=== PATIENT | female | born 1960 | race Caucasian/White ===

== ENCOUNTER 2017-02-11 20:03 | Emergency (ER) | payer BC ==
[~2017-02-11] VITALS: Ht 154.9 cm; Wt 101.6 kg
[2017-02-11 20:03] VITALS: Ht 154.9 cm; Wt 101.6 kg
[~2017-02-11 20:03] MED LIST: ACET325T51 PO; CHOL200014 PO; ENOX120D SQ; LEVO100T83 PO; LISI10TA7 PO; MAGN100T2 PO; MUPI15CR12 TOP; OMEP20CA81 PO; OXYC5TAB84 PO; SENN8.6C5 PO; VENL-68 PO; WARF5TAB6 PO; [UNRECOGNIZED DRUG - CODE] PO
--- OUTSIDE RECORDS SUMMARY | 2017-02-11 20:07 | XMS REPORT | Continuity of Care Document ---
Author Author [facility] Organization [facility] Address Unknown Phone Unavailable Care Team Providers Care Bellhop Captain Name Role Phone Peter Escalante Primary Care Physician [phone] Source Comments Some departments are not documenting in the electronic medical record. If you do not see the information that you expected, contact Release of Information in the Health Information Management department at [phone] for further assistance in locating additional records.[facility] Active Allergies and Adverse Reactions Allergen Noted Date Severity Reactions Comments Hydrocodone 01/05/2015 Low DIZZINESS Lortab 01/24/2015 Low DIZZINESS Sulfa (Sulfonamide 10/13/2004 Low DIZZINESS Antibiotics) Current Medications Prescription Sig. Disp. Refills Start End Date Status Date omeprazole DR(+) Take 20 mg by mouth twice Active (PRILOSEC) 20 mg capsule daily. levothyroxine (SYNTHROID) Take 100 mcg by mouth Active 100 mcg tablet daily. Indications: Take Friday through Friday only. Not Friday venlafaxine XR (EFFEXOR Take 75 mg by mouth Active XR) 75 mg capsule daily. cholecalciferol(+) Take 2,000 Units by mouth Active (VITAMIN D3) 2,000 unit daily. tablet lisinopril (PRINIVIL; Take 10 mg by mouth Active ZESTRIL) 10 mg tablet daily. mupirocin (BACTROBAN) 2 % Apply 0.5 g to affected Active nasal ointment area three times daily. acetaminophen (TYLENOL) Take 2 Tabs by mouth 30 Tab 1 01/27/20 Active 325 mg tablet every 4 hours as needed 15 for Pain. levETIRAcetam (KEPPRA) Take 1 Tab by mouth twice 60 Tab 1 01/27/20 Active 750 mg tablet daily. 15 WARFARIN SODIUM (WARFARIN Take by mouth. 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 Encounter for staple removal 02/09/2015 Hypertension 01/24/2015 Seizures (HCC) 01/24/2015 Social History Tobacco Use Types Packs/Day Years Used Date Never Smoker Alcohol Use Drinks/Week oz/Week Comments Yes less than weekly Last Filed Vital Signs Vital Sign Reading Time Taken Blood Pressure 105/76 09/11/2015 9:11 AM DETECTIVE CAPTAIN Pulse 76 09/11/2015 9:11 AM DETECTIVE CAPTAIN Temperature 36.7 C (98.1 F) 01/26/2015 12:00 PM CDT Respiratory Rate - - Height 1.549 m (5' 1") 09/11/2015 9:11 AM DETECTIVE CAPTAIN Weight 111.131 kg (245 lb) 09/11/2015 9:11 AM DETECTIVE CAPTAIN Body Mass Index 46.32 09/11/2015 9:11 AM DETECTIVE CAPTAIN Oxygen Saturation 98% 01/26/2015 12:00 PM CDT Plan of Care Health Maintenance Due Date Last Done Comments Hepatitis C Screening 1960 Physical (Comprehensive) 1969 Exam Pertussis Vaccine 1973 Tetanus Vaccine 1979 Cervical Cancer Screening 1983 Breast Cancer Screening 2002 Colorectal Cancer 02/21/2012 Screening Influenza Vaccine 06/13/2017 Results from Last 3 Months Not on file
[2017-02-11] MEDS ORDERED: CLON1PAT15 TOP (20:16)
[2017-02-11] MEDS ORDERED: ESLI800T PO (20:16)
--- NOTE | 2017-02-11 20:20 | NUR ---
PT PLACEMENT VERNELL OLEARY RN AT PT PLACEMENT AT [facility]. PT WILL GO TO [address].
--- OUTSIDE RECORDS SUMMARY | 2017-02-11 20:28 | XMS REPORT | Continuity of Care Document ---
Author Author [facility] Organization [facility] Address Unknown Phone Unavailable Care Team Providers Care Sheep Or Calf Grader Name Role Phone Peter Escalante Primary Care Physician [phone] Source Comments Some departments are not documenting in the electronic medical record. If you do not see the information that you expected, contact Release of Information in the Health Information Management department at [phone] for further assistance in locating additional records.[facility] Active Allergies and Adverse Reactions Allergen Noted [...] Taken Blood Pressure 105/76 09/11/2015 9:11 AM GLOBAL MARKETING OPERATIONS MANAGER Pulse 76 09/11/2015 9:11 AM GLOBAL MARKETING OPERATIONS MANAGER Temperature 36.7 C (98.1 F) 01/26/2015 12:00 PM CDT Respiratory Rate - - Height 1.549 m (5' 1") 09/11/2015 9:11 AM GLOBAL MARKETING OPERATIONS MANAGER Weight 111.131 kg (245 lb) 09/11/2015 9:11 AM GLOBAL MARKETING OPERATIONS MANAGER Body Mass Index 46.32 09/11/2015 9:11 AM GLOBAL MARKETING OPERATIONS MANAGER Oxygen Saturation 98% 01/26/2015 12:00 PM CDT Plan of Care Health Maintenance Due Date Last Done Comments Hepatitis C Screening 1960 Physical (Comprehensive) 1969 Exam Pertussis Vaccine 1973 Tetanus Vaccine 1979 Cervical Cancer Screening 1983 Breast Cancer Screening 2002 Colorectal Cancer 02/21/2012 Screening Influenza Vaccine 06/13/2017 Results from Last 3 Months Not on file
[2017-02-11] MEDS ORDERED: ONDANSETRON 4mg/2ml INJECTION IV ONE ×2 (20:30→22:30)
--- NOTE | 2017-02-11 20:46 | NUR ---
CT Patient out to CT
--- NOTE | 2017-02-11 21:04 | NUR ---
CT Patient returns
--- NOTE | 2017-02-11 21:13 | ERPDOC ---
Departure Disposition Decision Date: February 11, 2017 Disposition Decision Time: 22:00 Disposition: 02 TO [facility] Impression Impression Impression: Primary Impression: Pyelonephritis Additional Impressions: Hyponatremia Acute kidney injury Dehydration Severity: Moderate Condition: Improved Seen By: Physician only Referrals: EMMANUELLE MCKOY MD (Family) Problems/Meds/Labs Reviewed?: Yes Medications reviewed and manag: Yes Follow up care ordered?: Yes Mental Status: Alert, Oriented HPI - General Medical General Chief Complaint: Female Urogenital Problems Stated Complaint: BACK PAIN,NAUSEA,SEVERE OROURKE Time Seen by Provider: 20:22 Source: patient, family Exam Limitations: no limitations HPI - General Medical Initial Comments 56-year-old female presents to the emergency department with a chief complaint of nausea and a typical headache. Patient noted onset of symptoms approximately 3-4 days ago while at home. Patient was seen in the emergency department one day ago and started on Cipro after she was diagnosed with a urinary tract infection. Patient describes the headache as dull and generalized. It is moderate in nature. No radiation. She notes that the Zofran did improve her nausea but she was not given a prescription only a dose at the ED yesterday. Patient denies any other complaints or associated symptoms. Symptoms have been persistent in nature since onset. Occurred At: home Onset: Gradual Allergies: Coded Allergies: hydrocodone (Verified Allergy, Unknown, 02/17/15) Sulfa (Sulfonamide Antibiotics) (Verified Adverse Reaction, Unknown, VERTIGO, 02/17/15) Past History Past Medical History Metabolic: cancer, hypertension, other ENMT: ear infections, sinusitis Respiratory: pneumonia Female: UTI Neurological: headaches, migraines, seizures Psychological: depression Surgical History General: other, tonsils Reproductive/: Joint: other Family History Family PMH: FOUND: diabetes Vaccines Hx Influenza Vaccination: Yes (06/26) Hx Pneumococcal Vaccination: Yes (02/24) Social History Smoking Status: Never smoker Substance Use Type: does not use Alcohol Intake: none Sexuality: male partner Review of Systems Constitutional Constitutional: DENIES: chills, fever Eyes General: DENIES: erythema, exudate Lids/Accessories: DENIES: erythema, swelling Vision: DENIES: acuity, blurring ENMT Ears: DENIES: drainage, pain Hearing: DENIES: hearing loss Balance: DENIES: ataxia, falling to one side Sinuses: DENIES: congestion, pain, rhinorrhea Nose: DENIES: nosebleeds, pain Mouth/Throat: DENIES: painful swallowing, sore throat Teeth: DENIES: pain Jaw: DENIES: pain Cardiovascular Cardiac: DENIES: chest pain, dyspnea on exertion Rhythm/Rate: DENIES: irregular beat, palpitations Vascular: DENIES: pedal edema, unilateral swelling Pulmonary Respiratory: DENIES: cough, dyspnea, pleuritic chest pain, sputum GI Upper Abdomen: nausea, DENIES: pain, vomiting Lower Abdomen: DENIES: diarrhea, pain General: dysuria, frequency Musculoskeletal General: DENIES: joint pain, tenderness Integumentary Skin: DENIES: itching, rash Neurological General: headache, DENIES: numbness, weakness Psychiatric Psychiatric: DENIES: emotional instability, suicidal ideation/attempt Endocrine Endocrine: DENIES: polydipsia, polyphagia Hematologic/Lymphatic Hematologic/Lymphatic: DENIES: frequent nosebleeds, lymphadenopathy Allergic/Immunological Allergic/Immunoligical: DENIES: allergic reactions, hives Physical Exam General General Nourishment: well nourished, well developed, appears stated age, no acute distress, adult General Body Habitus: well groomed Vitals and Pain First Documented Vital Signs Date Time Temp Pulse Resp B/P Pulse Ox O2 Delivery O2 Flow Rate FiO2 02/11/17 20:03 99.0 90 18 120/73 94 Room Air Weight: Kilograms: 101.600 Height (feet): 5 Height (inches): 1.00 Triage Pain Scale: RN VS reviewed by Provider: Yes Normal Exams: Head: Normocephalic w/o trauma Eyes: Pupils are PERRLA w/ EOMI, No scleral icterus, irritation, or foreign bodies noted ENMT: No facial trauma, nasal exudates, pharyngeal erythema, or exudates are noted Dental: No fractured, loose, or missing teeth noted Neck: Full range of motion, without adenopathy, JVD, bruits or thyromegaly Chest/Resp: Clear all hernandez, with good airflow, and symmetry bilaterally CV: Regular rate and rhythm, without murmur or gallop, Pulses 2+ all extremities, capillary refill, <2 seconds all ext., no pedal edema noted Abdomen: Bowel sounds positive, soft, non-tender, non-distended, no hepatosplenomegaly, masses or bruits noted Lymphatic: No lymphadenopathy, or lymphedema noted Musculoskeletal: No tenderness, or deformity noted, good range of motion, all extremities Integumentary: No rashes, hives, or bruising noted, hair and nails, without abnormality Neurologic: Patient is alert, and oriented, cranial nerves, motor/sensory/ cerebellar, exams w/o gross deficits, to observation Psychiatric: Patient exhibits, appropriate attention, emotion and affect Progress Results/Orders Orders Procedure Category Date Status Time Cbc W/Auto LAB 02/11/17 Complete Diff-Reflex Manual Cmp - Comprehensive LAB 02/11/17 Complete Metabolic Lipase LAB 02/11/17 Complete LAB 02/11/17 Complete Qualitative, Urine 20:27 Ct Head W/O Contrast CT 02/11/17 Taken 20:27 Ct Abd/Pelvis W/O CT 02/11/17 Taken Contrast 20:27 EKG EKG 02/11/17 Taken Ondansetron Inj PHA 02/11/17 Complete (Zofran) 20:30 Iv Lock (Ed Only) EDM 02/11/17 Transmitted 20:27 UA, LAB 02/11/17 Complete Dip&Micro(Complete) & 21:39 Lactate - Lactic Acid LAB 02/11/17 Complete Procalcitonin LAB 02/11/17 Complete 21:51 Blood Culture MATTY 02/11/17 In Process 21:51 Lactate - Lactic Acid LAB 02/12/17 Verified 02:21 Urine Culture MATTY 02/11/17 In Process 21:57 Ceftriaxone I.V. (Er PHA 02/11/17 In Process Use Only) (Rocephin 22:15 Normal Saline (Ns) PHA 02/11/17 Complete 22:15 Acetaminophen PHA 02/11/17 Complete (Tylenol Extra 22:30 Ondansetron Inj PHA 02/11/17 Complete (Zofran) 22:30 Lab Results Laboratory Tests Test 02/11/17 21:08 02/11/17 21:39 02/11/17 22:05 02/11/17 22:06 White Blood Count 9.6T/MM3 Red Blood Count 3.34M/MM3 Hemoglobin 10.2GM/DL Hematocrit 29.5% Mean Corpuscular Volume 88.3UM3 Mean Corpuscular Hemoglobin 30.5UUG Mean Corpuscular Hemoglobin Concent 34.6GM/DL RDW Standard Deviation 37.7FL Platelet Count 159T/MM3 Mean Platelet Volume 8.4UM3 Immature Granulocyte % (Auto) % Neutrophils (%) (Auto) % Lymphocytes (%) (Auto) % Monocytes (%) (Auto) % Eosinophils (%) (Auto) % Basophils (%) (Auto) % Absolute Immature Granulocyte (auto T/MM3 Absolute Neutrophils (auto) T/MM3 Absolute Lymphocytes (auto) T/MM3 Absolute Monocytes (auto) T/MM3 Absolute Eosinophils (auto) T/MM3 Absolute Basophils (auto) T/MM3 Neutrophils % (Manual) 76.0% Band Neutrophils % 17.0% Lymphocytes % (Manual) 7.0% Absolute Neutrophils (Manual) 7.3T/MM3 Band Neutrophils # 1.6T/MM3 Lymphocytes # (Manual) 0.7T/MM3 Red Cell Morphology Comment Normal Turbidity < 20 Sodium Level 122MEQ/L Potassium Level 4.1MEQ/L Chloride Level 88MEQ/L Carbon Dioxide Level 24MEQ/L Anion Gap 10MEQ/L Blood Urea Nitrogen 27.0MG/DL Creatinine 1.4MG/DL Glomerular Filtration Rate Calc 39 BUN/Creatinine Ratio 19RATIO Glucose Level 127MG/DL Calculated Osmolality 243MOSM/KG Calcium Level 8.6MG/DL Total Bilirubin 0.80MG/DL Icterus Index < 2 Aspartate Amino Transf (AST/SGOT) 18U/L Alanine Aminotransferase (ALT/SGPT) 43U/L Alkaline Phosphatase 86U/L Total Protein 5.6G/DL Albumin 3.0G/DL Globulin 2.6G/DL Albumin/Globulin Ratio 1.2RATIO Lipase < 10U/L Chemistry Specimen Hemolysis < 15 Urine Collection Type Cleancatch-midstream Urine Color Yellow Urine Turbidity Cloudy Urine pH 5.5 Urine Specific [place] 1.025 Urine Protein 2+ Urine Glucose (UA) Negative Urine Ketones Trace Urine Blood 1+ Urine Nitrite Negative Urine Bilirubin 1+ Urine Urobilinogen 1.0EU/DL Urine Leukocyte Esterase 2+ Urine RBC 0-1/HPF Urine WBC 50-200/HPF Urine WBC Clumps Few Urine Squamous Epithelial Cells 20-50 Urine Amorphous Urates Few Urine Bacteria 2+ Urine Coarse Granular Casts 3-5/LPF Urine Culture Indicated Cult reflexed &setup Urine Test Negative Procalcitonin 6.95NG/ML Plasma Lactate 0.6MMOL/L Medications Current ED Medications Ondansetron HCl 4 mg 4 mg O ONCE IV Last administered on 5/2/17at 21:14; Start 02/11/17 at 20:30; Stop 02/11/17 at 20:31; Status DC Ceftriaxone Sodium 1 g/Sodium Chloride 100 ml @ 100 mls/hr O ONCE IV Last administered on 02/11/17 22:32; Start 02/11/17 at 22:15; Stop 02/11/17 at 23:14 Sodium Chloride (NS) 500 ml @ 999 mls/hr Q31M ONCE IV Last administered on 02/11 22:31; Start 02/11/17 at 22:15; Stop 02/11/17 at 22:45; Status DC Acetaminophen (Tylenol Extra Strength) 1,000 mg O ONCE PO Last administered on 02/11/17 22:32; Start 02/11/17 at 22:30; Stop 02/11/17 at 22:31; Status DC Ondansetron HCl (Zofran) 4 mg O ONCE IV Last administered on 02/11/17 22:31; Start 02/11/17 at 22:30; Stop 02/11/17 at 22:31; Status DC Progress Progress Labs / imaging discussed in detail with the patient and family and questions are answered. Patient is given gentle IV hydration secondary to the hyponatremia. Patient is given analgesic pain medication with improvement of symptoms. Patient is given parental antiemetic medications with improvement of nausea. Blood cultures and lactic acid are obtained. Patient is started on Rocephin 1 g IV 1 in the emergency Department. Patient is discussed with the hospitalist Dr. Hua Candelaria who recommends transfer of the patient to a higher level of care at this time. His recommendation is based on the fact that due to the patient's complex history and her neurologist being via [facility] along with no availability of nephrology at [place], the best place for the patient to receive the best care would be at a higher level of care facility. Patient and family are in agreement with the current plan of management. Patient is in agreement with plan to transfer to . Risk versus benefit of transfer is discussed in detail with the patient who verbalizes agreement and understanding. Patient is accepted by Dr. Griffin at [facility]. Patient is currently stable for transfer to [facility]. Patient was not hypotensive and did not have a lactic acid greater than 4 in the emergency department so she did not need the 30 mL/kg normal saline infusion. EKG EKG : Rate: 60-100 Rhythm: sinus [place]: normal QRS: normal Intervals: normal ST/T: normal Interpreted by: signing physician CT CT : CT: Abd/Pelvis no contrast Interpretation: Abnormal (90 consistent with left-sided pyelonephritis. Otherwise no acute processes. CT head: Negative.), Faxed Report JUSTO DOMINGUEZ DO February 11, 2017 21:13
[2017-02-11 21:25] LABS: ALBUMIN/GLOBULIN RATIO 1.2 RATIO (1.1-2.2); ALKALINE PHOSPHATASE 86 U/L (38-126); ALT (SGPT) 43 U/L (9-52); ANION GAP 10 MEQ/L (5-15); AST (SGOT) 18 U/L (14-36); BUN/CREATININE RATIO 19 RATIO (6-26); CALCIUM 8.6 MG/DL (8.4-10.2); CHLORIDE 88 MEQ/L (98-107); CO2 - CARBON DIOXIDE 24 MEQ/L (22-30); CREATININE 1.4 MG/DL (0.7-1.2); GLOMERULAR FILTRATION RATE 39; GLUCOSE 127 MG/DL (65-110); HCT - HEMATOCRIT 29.5 % (36-46); HGB - HEMOGLOBIN 10.2 GM/DL (12-16); LIPASE < 10 U/L (23-300); MEAN CORPUSCULAR HGB 30.5 UUG (26-34); MEAN CORPUSCULAR HGB CONC(MCHC 34.6 GM/DL (31-37); MEAN CORPUSCULAR VOLUME 88.3 UM3 (80-100); MEAN PLATELET VOLUME 8.4 UM3 (9.4-12.4); POTASSIUM 4.1 MEQ/L (3.6-5); RED BLOOD COUNT 3.34 M/MM3 (4.00-5.20); SODIUM 122 MEQ/L (134-144); TOTAL PROTEIN 5.6 G/DL (6.3-8.2); WBC - WHITE BLOOD COUNT 9.6 T/MM3 (4.5-11.0)
[2017-02-11 21:38] LABS: BAND NEUTROPHILS # 1.6 T/MM3; LYMPHOCYTES # (MANUAL) 0.7 T/MM3 (1-4.8); NEUTROPHILS #(MANUAL)-ABSOLUTE 7.3 T/MM3 (1.8-7.7); TOTAL CELLS COUNTED 100 %
[2017-02-11 21:47] LABS: BLOOD, URINE 1+ (NEGATIVE); COLOR,URINE YELLOW (YELLOW); LEUKOCYTE ESTERASE ,URINE 2+ (NEGATIVE); NITRITE,URINE NEGATIVE (NEGATIVE)
[2017-02-11 21:53] LABS: SQUAMOUS EPITHELIAL CELL,UR 20-50
[2017-02-11 21:54] LABS: WBC CLUMPS,URINE FEW; WBC,URINE 50-200 /HPF (0-5)
[2017-02-11 21:55] LABS: BACTERIA,URINE 2+ (NEGATIVE); RBC,URINE 0-1 /HPF (0-3)
[2017-02-11] MEDS ORDERED: NORMAL SALINE 500 ML IV ONE (22:15)
[2017-02-11] MEDS ORDERED: CEFTRIAXONE I.V. (ER USE ONLY) 1 G in NORMAL SALINE 100 ML IV ONE (22:15)
[2017-02-11] MEDS ORDERED: ACETAMINOPHEN 500 MG TABLET PO ONE (22:30)
[2017-02-11 23:10] VITALS: BP 145/86; PULSE 87; RESP 16; TEMP 99; O2SAT 96
--- NOTE | 2017-02-12 08:04 | DI ---
Indication: ITS.REASON: Nausea and back pain PROCEDURE: CT ABD/PELVIS W/O CONTRAST: Encounter: Initial Comparison: None Technique: Axial CT images were performed through the abdomen and pelvis without intravenous contrast. Coronal and sagittal two-dimensional reformats. Automated Exposure Control and Iterative Reconstruction dose reducing techniques were utilized. Findings: The lung bases are grossly clear. The unenhanced contours of the liver and gallbladder appear normal. The spleen, fatty replaced pancreas and adrenal glands are within normal limits. Left kidney shows some mild perinephric stranding and left hydroureter without obstructing stone. Right kidney appears normal. Uterus shows a calcified fibroid. No free fluid or evidence of a bowel obstruction. Bone windows show mild degenerative change in the spine. Impression: Inflammation surrounding the left kidney which could relate to recently passed stone or pyelonephritis. Recommend clinical and laboratory correlation. There is a preliminary report by [facility]. .
--- NOTE | 2017-02-12 08:05 | DI ---
Indication: ITS.REASON: Severe headache PROCEDURE: CT HEAD W/O CONTRAST: Encounter: Initial Comparison: February 17, 2015 Technique: Axial CT images through the head were performed without contrast. Iterative Reconstruction dose reducing technique was utilized. FINDINGS: Postoperative changes in the left middle cranial fossa with left temporal encephalomalacia. The ventricles are of normal size, shape, and contour for the patient's age. There are scattered areas of low attenuation in the white matter which most likely represent changes from chronic microvascular ischemia. The brainstem, cerebellum, and cerebral hemispheres otherwise have a normal morphology and CT attenuation. There is no evidence of midline displacement. No hemorrhage, signs of acute territorial stroke, mass effect, mass lesions, or edema is evident. The visualized portions of the skull base, midface, and calvarium demonstrate no acute abnormality. Air-fluid level in left sphenoid sinus. Right mastoid effusion and postoperative changes in the right mastoid. IMPRESSION: No acute intracranial abnormality or hemorrhage. Possible left sphenoid sinusitis. There is a preliminary report by [facility]. .
== END 2017-02-11 23:10 | disposition short-term general hospital (02) ==
LOC: ED 20:03
DX: N12 Tubulo-interstitial nephritis, not specified as acute or chronic (principal); E87.1 Hypo-osmolality and hyponatremia; E86.0 Dehydration; N17.9 Acute kidney failure, unspecified
CPT/HCPCS: 36415; 70450; 74176; 80053; 81001; 81025; 83605; 83690; 84145; 85025; 87040; 87086; 93005; 96365; 96375; 96376; 99285; J0696; J2405; J7050

== ENCOUNTER 2017-06-27 09:17 | Observation (INO) ==
--- OUTSIDE RECORDS SUMMARY | 2017-06-27 09:46 | External Medical Summary | Continuity of Care Document ---
:1960 Author Organization [facility] Care Team Providers Name Role Phone [employer] Unavailable Unavailable Problems Problem Status Onset Classification Date Comments Source Date Reported No data Problem 04/10/2017 [place] available for [facility], [facility]. Medications Medication Details Route Status Patient Ordering Order Source Instructions Provider Date No Known No known Active [place] Medications medications [facility], [facility]. Allergies, Adverse Reactions, Alerts Substance Category Reaction Severity Reaction Status Date Comments Source type Reported Sulfadiazine Assertion Dizziness Drug [place] allergy [facility], [facility]. Immunizations Immunization Date Given Site Status Last Updated Comments Source No data available No data [place] for [facility] available for [facility], [facility]. Encounters Location Location Encounter Encounter Reason Attending ADM DC Status Source Details Type Number For Provider Date Date Visit OUTPATIENT [id number] DEANNA 09/11 09/11 Active [facility] /2014 [facility] [id number] Emergency [id number] J. 02/10 02/11 Active Chris Cassidy /2016 [facility], [facility]. [facility] [id number] Emergency [id number] HAYES 04/05 04/05 Active [place] AYE /2016 [facility], [facility] Procedures Procedure Code Date Perfomer Comments Source adenoidectomy [facility] x2 [facility] left temporal lobe [place] mass removal [facility] nasal repair [facility] tonsilectomy [facility] wisdom teeth [facility] No data available [place] for [facility], [facility]. Family History Value Date Source Advance Directives Order Name Results Value Date Source
--- OUTSIDE RECORDS SUMMARY | 2017-06-27 09:46 | External Medical Summary | Clinical Summary ---
:1960 Author Organization [facility] Address [address] [id number] Phone Care Team Providers Name Role Phone Unavailable Primary Care Provider Unavailable Source Comments Some departments are not documenting in the electronic medical record. If you do not see the information that you expected, contact Release of Information in the Health Information Management department at [phone] for further assistance in locating additional records.[facility] Allergies Active Allergy Reactions Severity Noted Date Comments Hydrocodone DIZZINESS Low 01/05/2015 Hydrocodone-Acetaminophen DIZZINESS Low 01/24/2015 Sulfa (Sulfonamide Antibiotics) DIZZINESS Low 10/13/2004 Current Medications Prescription Sig. Disp. Refills Start Date End Date Status omeprazole DR(+) Take 20 mg by mouth Active (PRILOSEC) 20 mg capsule twice daily. levothyroxine Take 100 mcg by Active (SYNTHROID) 100 mcg mouth daily. tabletIndications: Take Indications: Take Friday through Friday through only. Not Friday only. Not Friday venlafaxine XR (EFFEXOR Take 75 mg by mouth Active XR) 75 mg capsule daily. cholecalciferol(+) Take 2,000 Units by Active (VITAMIN D3) 2,000 unit mouth daily. tablet lisinopril (PRINIVIL; Take 10 mg by mouth Active ZESTRIL) 10 mg tablet daily. mupirocin (BACTROBAN) 2 Apply 0.5 g to Active % nasal ointment affected area three times daily. acetaminophen (TYLENOL) Take 2 Tabs by 30 Tab 1 01/26/2015 Active 325 mg tablet mouth every 4 hours as needed for Pain. levETIRAcetam (KEPPRA) Take 1 Tab by mouth 60 Tab 1 01/26/2015 Active 750 mg tablet twice daily. WARFARIN SODIUM Take by mouth. 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 Encounter for staple removal 02/09/2015 Hypertension 01/24/2015 Seizures (HCC) 01/24/2015 Family History Medical History Relation Name Comments Hypertension Father Arthritis-osteo Mother Diabetes Mother Hypertension Mother Obesity Mother Relation Name Status Comments Father Alive Mother Alive Sister Alive Social History Tobacco Use Types Packs/Day Years Used Date Never Smoker Alcohol Use Drinks/Week oz/Week Comments Yes less than weekly Sex Assigned at Date Recorded Not on file Last Filed Vital Signs Vital Sign Reading Time Taken Blood Pressure 105/76 09/11/2015 9:11 AM REGISTERED NURSE RENAL Pulse 76 09/11/2015 9:11 AM REGISTERED NURSE RENAL Temperature 36.7 C (98.1 F) 01/26/2015 12:00 PM CDT Respiratory Rate - - Oxygen Saturation 98% 01/26/2015 12:00 PM CDT Inhaled Oxygen Concentration - - Weight 111.1 kg (245 lb) 09/11/2015 9:11 AM REGISTERED NURSE RENAL Height 154.9 cm (5' 1") 09/11/2015 9:11 AM REGISTERED NURSE RENAL Body Mass Index 46.29 09/11/2015 9:11 AM REGISTERED NURSE RENAL Plan of Treatment Health Maintenance Due Date Last Done Comments HEPATITIS C SCREENING 1960 PHYSICAL (COMPREHENSIVE) EXAM 1969 PERTUSSIS VACCINE 1973 TETANUS VACCINE 1979 CERVICAL CANCER SCREENING 02/21/1992 BREAST CANCER SCREENING 2002 COLORECTAL CANCER SCREENING 02/21/2012 INFLUENZA VACCINE 06/13/2017
--- NOTE | 2017-06-27 10:00 | Emergency Department Report ---
General Adult HPI - General Chief complaint: Nausea/Vomiting/Diarrhea Stated complaint: Nausea, Pos Dehydration Time Seen by Provider: 06/27/17 09:38 Source: patient, family Mode of arrival: ambulatory Limitations: no limitations - History of Present Illness HPI narrative: 57-year-old female presents the emergency department with a chief complaint of nausea and vomiting. Patient noticed that her symptoms began yesterday morning and increased throughout the day. Patient was seen by her primary care physician Dr. Arciniega and referred to the emergency department for IV hydration. At that point patient felt improved and was discharged home. Patient states that her symptoms have continued. She denies any pain or discomfort. Patient does note nausea and continued intermittent episodes of nonbloody nonbilious emesis. She was at home when her symptoms began. Symptoms have been persistent in nature since onset. No other complaints or associated symptoms present currently. Dr. Arciniega would like the patient to be placed in observation status for symptom control. 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 Patient declines any sort of antihypertensive management due to the fact that her blood pressure can be highly elevated and less than 80 systolic a few moments later. - Related Data Home Medications Medication Instructions Recorded Confirmed CloNIDine [Catapres] 0.1 mg PO BID 06/26/17 06/27/17 Lamotrigine [LaMICtal] 200 mg PO BID 06/27/17 06/27/17 Levothyroxine Tab [Synthroid] 100 mcg PO ACB 06/27/17 06/27/17 Ondansetron HCl [Zofran] 4 mg PO Q4H PRN 06/27/17 06/27/17 Venlafaxine Xr [Effexor Xr] 75 mg PO BID 06/27/17 06/27/17 Allergies Allergy/AdvReac Type Severity Reaction Status Date / Time Sulfa (Sulfonamide AdvReac Unknown VERTIGO Verified 06/27/17 09:37 Antibiotics) Review of Systems Constitutional: Denies: fever, chills Eyes: Denies: eye pain, vision change ENT: Denies: ear pain, throat pain Cardiovascular: Denies: chest pain, palpitations Respiratory: Denies: cough, dyspnea Gastrointestinal: Reports: nausea, vomiting. Denies: abdominal pain, diarrhea Genitourinary: Denies: urgency, dysuria Musculoskeletal: Denies: back pain, arthralgia Integumentary: Denies: erythema, rash Neurological: Denies: headache, numbness Psychiatric: Denies: anxiety, depression Endocrine: Denies: fatigue, heat or cold intolerance Hematological/Lymphatic: Denies: easy bleeding, easy bruising Allergic/Immunologic: Denies: facial swelling, urticaria PFSH Patient Stated Medical History Hearing Loss Yes Other HEENT Yes: BALANCE ISSUES R/T RADIATION, SINUS CANCER Other Cardiology Yes: FLUCTUATING HYPO/HYPERTENSION Pulmonary Embolism Yes: multiple "small ones" Sleep Apnea Yes Gastroesophageal Reflux Yes Disease Hx Renal Disease Yes Hx Urinary Tract Infection Yes Other Musculoskeletal Yes: L WRIST FX Sepsis Yes Depression Yes Clinic Medical History (Last Updated 06/04/17 @ 09:01 by Pramod Bailey MD) Hypothyroidism (Chronic Medical) Clinically and chemically euthyroid. Nontoxic single thyroid nodule (Chronic Medical) No palpable nodule. Empty sella syndrome (Chronic Medical) CKD (chronic kidney disease) stage 3, GFR 30-59 ml/min (Chronic Medical) Nasopharyngeal carcinoma (Inactive Medical ~2009) Having scans every 6 months. Morbid obesity with BMI of 40.0-44.9, adult (Chronic Medical) Worse. Surgical History: . Rt surgery. rt ear. sinus surgery x 3. T&A. brain surgery left lobe. Hysterectomy Family History: Family History (Last Updated 06/04/17 @ 08:48 by Roberta Aaron Nathalia) Mother Diabetes High blood pressure Sister Thyroid disease Father High blood pressure Maternal Aunt Throat cancer Maternal Grandmother Breast cancer - Social History Smoking status: Never smoker Substance use type: does not use Alcohol intake frequency: does not drink Physical Exam - Limitations Limitations: no limitations - General General appearance: alert, in no apparent distress - Normal Exams: Head:: Normocephalic without trauma Eyes:: Pupils are PERRLA w/ EOMI, No scleral icterus, irritation, or foreign bodies noted ENMT:: No facial trauma, nasal exudates, pharyngeal erythema, or exudates are noted Dental: No fractured, loose, or missing teeth noted Neck:: Full range of motion, without adenopathy, JVD, bruits or thyromegaly Chest/Respirations:: Clear all hernandez, with good airflow, and symmetry bilaterally Cardiovascular:: Regular rate and rhythm, without murmur or gallop, Pulses 2+ all extremities, capillary refill, <2 seconds all extremities Abdomen:: Bowel sounds positive, soft, non-tender, non-distended, no hepatosplenomegaly, masses or bruits noted Lymphatic:: No lymphadenopathy, or lymphedema noted Musculoskeletal:: No tenderness, or deformity noted, good range of motion, all extremities Integumentary:: No rashes, hives, or bruising noted, hair and nails, without abnormality Neurological:: Patient is alert, and oriented, cranial nerves, motor/sensory/ cerebellar, exams w/o gross deficits, to observation Psychiatric:: Patient exhibits, appropriate attention, emotion and affect Course Vital Signs Temperature 98.3 F 06/27/17 09:35 Pulse Rate 93 06/27/17 09:35 Respiratory Rate 16 06/27/17 09:35 Blood Pressure 224/141 H 06/27/17 09:35 Pulse Oximetry 96 06/27/17 09:35 Temperature 97.2 F 06/28/17 07:00 Pulse Rate 84 06/28/17 08:58 Respiratory Rate 18 06/28/17 08:58 Blood Pressure 102/57 06/28/17 08:58 Pulse Oximetry 96 06/28/17 10:28 Medical Decision Making - [facility] Narrative Medical decision making narrative: Labs/imaging were reviewed in detail with the patient and family and questions are answered. Patient once again declines antihypertensive medications secondary to the varied swings of her labile blood pressure. She states this is not abnormal to her and that she is worried that treating the blood pressure to drop it too a very low level. She is asymptomatic in regard to the blood pressure. Patient was seen in the emergency department yesterday and discharged home after IV hydration. Patient returns today with continuation of symptoms. Patient's primary care physician Dr. [place] Arciniega would like to see the patient admitted to the hospital in observation status for symptom control. Patient is admitted for intractable nausea and vomiting. Patient and family are in agreement with the current plan of management. Patient is admitted to the hospital in improved condition. She is to follow up as instructed. Patient is admitted to the service of Dr. Jonas after discussion with him. No further orders from accepting physician is in agreement with the current plan of management. - Differential Diagnosis intractable nausea and vomiting, metabolic process, dehydration, bowel obst - Lab Data Result diagrams: 06/28/17 08:14 06/28/17 08:14 Lab Results 06/27/17 06/27/17 06/27/17 Range/Units 10:06 10:06 10:57 WBC 5.9 (4.5-11.0) T/MM3 RBC 5.29 H (4.00-5.20) M/MM3 Hgb 15.2 (12-16) GM/DL Hct 47.1 H (36-46) % MCV 89.0 (80-100) UM3 MCH 28.7 (26-34) UUG MCHC 32.3 (31-37) GM/DL RDW Std Deviation 43.6 (36.9-50.2) FL Plt Count 260 (130-400) T/MM3 MPV 8.6 L (9.4-12.4) UM3 Immature Gran % (Auto) 0.3 (0.0-0.5) % Neut % (Auto) 76.5 H (33-66) % Lymph % (Auto) 15.7 L (23-45) % [place] % (Auto) 5.8 (0-9.0) % Eos % (Auto) 1.2 (0-4) % Baso % (Auto) 0.5 (0-2) % Neut # 4.5 (1.8-7.7) T/MM3 Lymph # 0.9 L (1-4.8) T/MM3 [place] # 0.3 (0-0.8) T/MM3 Eos # 0.1 (0-0.5) T/MM3 Baso # 0.0 (0-0.2) T/MM3 Abs Immat Gran (auto) 0.02 (0.00-0.03) T/MM3 Turbidity < 20 (0-20) Sodium 145 H (134-144) MEQ/L Potassium 3.7 (3.6-5) MEQ/L Chloride 98 (98-107) MEQ/L Carbon Dioxide 33 H (22-30) MEQ/L Anion Gap 14 (5-15) MEQ/L BUN 24.0 H (7-17) MG/DL Creatinine 1.8 H (0.7-1.2) MG/DL GFR Calculation 29 BUN/Creatinine Ratio 13 (6-26) RATIO Glucose 103 (65-110) MG/DL Calculated Osmolality 283 H (261-280) MOSM/KG Calcium 10.2 (8.4-10.2) MG/DL Total Bilirubin 1.20 (0.20-1.30) MG/DL Icterus Index < 2 (0-7) AST 21 (14-36) U/L ALT 28 (9-52) U/L Alkaline Phosphatase 151 H (38-126) U/L Total Protein 8.4 H (6.3-8.2) G/DL Albumin 4.9 (3.5-5.0) G/DL Globulin 3.5 (2.4-3.6) G/DL Albumin/Globulin Ratio 1.4 (1.1-2.2) RATIO Lipase 23 (23-300) U/L Specimen Hemolysis 23 (0-25) Ur Collection Type Urine, clean catch Urine Color Yellow (YELLOW) Urine Clarity Clear Urine pH 7.0 (5.0-8.0) Ur Specific [place] <=1.005 L (1.015-1.025) Urine Protein Trace A (NEGATIVE) Urine Glucose (UA) Negative (NEGATIVE) Urine Ketones Negative (NEGATIVE) Urine Occult Blood Trace-lysed (NEGATIVE) Urine Nitrate Negative (NEGATIVE) Urine Bilirubin Negative (NEGATIVE) Urine Urobilinogen 0.2 (NORMAL) EU/DL Ur Leukocyte Esterase Negative (NEGATIVE) Urinalysis Comment Microscopic not ind. - Radiology Data Acute abdominal series with a 1 view chest x-ray: No acute processes. - EKG Data EKG #1 EKG results narrative: Sinus rhythm. 91 beats per minutes. No STEMI. Disposition Clinical Impression: Dehydration Intractable nausea and vomiting Qualifiers: Vomiting type: unspecified Qualified Code(s): R11.2 - Nausea with vomiting, unspecified Disposition: 02 To [facility] Condition: Stable Time of Disposition: 11:00 (Admit:Dr. Jonas. ) - Seen By: physician
[2017-06-27] MEDS: SALINE FLUSH 10ml SYRINGE IVF PRN ×4 (10:10→20:52)
--- NOTE | 2017-06-27 11:00 | XRay Report ---
Indication: Nausea PROCEDURE: PA view of the chest with supine and upright AP views of the abdomen Encounter: Initial Comparison: CT abdomen and pelvis dated February 11, 2017 FINDINGS: The lungs are clear. There is no abnormal airspace opacity, pleural effusion or pneumothorax identified. The heart size, pulmonary vasculature and mediastinum are within normal limits. There is no free air on the upright view. The bowel gas pattern is nonobstructive and nonspecific. Gas is seen in nondilated small and large bowel to the level of the rectum. Moderate stool is seen throughout the colon. The bony structures are grossly unremarkable. Calcified uterine fibroid. IMPRESSION: 1. No acute cardiopulmonary abnormality. 2. No evidence of acute obstruction or free air. .
[2017-06-27] MEDS ORDERED: NS 1,000 ML IV ONE (11:12)
[2017-06-27] MEDS ORDERED: ONDANSETRON 4 MG/2 ML INJECTION IVP ONE (11:12)
[2017-06-27 13:28] VITALS: BMI 39.9
--- NOTE | 2017-06-27 13:58 | History & Physical Report ---
<Cathi Gottlieb - Last Filed: 06/27/17 14:42> History of Present Illness Date: 06/27/17 Chief complaint: nausea and vomiting HPI: Alicia Weber is a 57 year old who developed N/V suddenly in the morning of . She was seen by Dr. Arciniega who recommended ED eval + admission. Emesis x4 followed by dry heaves. She tried Zofran ODT without much help. Denies diarrhea. Notes diffuse abdominal discomfort/uneasy feeling but no cramping. No hematemesis or coffee-ground appearance. She notes chills alternating with sweating and getting hot. BP this am was 89/56 and she didn't take her home clonidine. She felt weak/dizzy when her BP was low - no syncope but has a history of near-syncope. She denies any recent ill exposures. Hx of blood in the urine - and had UTI a couple weeks ago for which she took abx. She has dry eyes, nose, mouth on a chronic basis, worse recently since she became sick with GI symptoms. Mild headaches, much worse today. Describes it as "So bad I can hear my heart rate". Typically takes Tylenol if she has headaches. Notes sinus congestion when she lies back, with pharyngeal drainage. Tends to bruise easily. Review of Systems Comprehensive ROS: completed and no additional positive findings except those as stated - Constitutional Constitutional: Present: as per HPI, weight gain ("stress eater") - EENMT Eyes: Present: requires corrective lenses Ears: Present: as per HPI Balance: Present: other (poor balance) Nose: Present: as per HPI Mouth/Throat: Present: other (dysphagia b/c of dry throat - needs to keep it moisturized) - Cardiovascular Cardiovascular: Absent: chest pain, palpitations Vascular: Absent: pedal edema - Respiratory Respiratory: Absent: dyspnea - Gastrointestinal Gastrointestinal: Present: as per HPI - Genitourinary Menstruation: post menopausal (s/p chemo) - Musculoskeletal Musculoskeletal: Present: muscle cramps, muscle weakness - Integumentary/Breasts Integumentary: Absent: wounds - Neurological Neurological: Present: dizziness, headache(s). Absent: abnormal gait, confusion - Psychiatric Psychiatric: Present: anxiety, depression - Hematologic/Lymphatic Hematologic/Lymphatic: Present: easy bruising PFSH Seizure in 2015. EEG 4/4/17 was normal. (Dr. Gutiérrez) CKD stage III HTN and orthostatic hypotension (Dr. Dickinson) - baroreceptor dysfunction Hypothyroidism (Dr. Bailey) Nontoxic single thyroid nodule Empty sella syndrome CKD (chronic kidney disease) stage 3, GFR 30-59 ml/min (Dr. Melo Lucas) Nasopharyngeal carcinoma (~2009) (Scans every 6 months - Dr. Tavares) Morbid obesity with BMI of 40.0-44.9, adult PE in 2015 JESSICA - uses CPAP and nocturnal O2 Right hand peripheral neuropathy Depression GERD *Follows with [facility]. Surgical History: EGD & colonoscopy 2012 - normal. Chemo/radiation 2009. Ear tubes 2008. Sinus surgery 2007. Mastoidectomy. T&A. C-sections. brain surgery left lobe 2014 - pathology revealed gliosis from post-radiation changes Family History: Mother - Diabetes; High blood pressure Sister - Thyroid disease Father - High blood pressure Maternal Aunt - Throat cancer Maternal Grandmother - Breast cancer - Social History Smoking status: Never smoker Substance use type: does not use Household members: spouse Current occupational status: disabled (due to radiation damage; hearing/balance issues) Medications Home Medications Medication Instructions Recorded Confirmed Type CloNIDine [Catapres] 0.1 mg PO BID 06/26/17 06/27/17 History Lamotrigine [LaMICtal] 200 mg PO BID 06/27/17 06/27/17 History Levothyroxine Tab [Synthroid] 100 mcg PO ACB 06/27/17 06/27/17 History Ondansetron HCl [Zofran] 4 mg PO Q4H PRN 06/27/17 06/27/17 History Venlafaxine Xr [Effexor Xr] 75 mg PO BID 06/27/17 06/27/17 History Allergies Allergy/AdvReac Type Severity Reaction Status Date / Time Sulfa (Sulfonamide AdvReac Unknown VERTIGO Verified 06/27/17 09:37 Antibiotics) Exam Vital Signs: Temperature 96.7 F L 06/27/17 13:24 Pulse Rate 85 06/27/17 13:27 Respiratory Rate 18 06/27/17 13:24 Blood Pressure 165/114 H 06/27/17 13:27 Pulse Oximetry 99 06/27/17 13:24 Height/Weight/BMI: Height 1.55 m Weight 96 kg Body Mass Index 39.9 - Constitutional Present: no acute distress, well nourished, well developed, obese - Routine HEENT Exam Eye: Present: PERRL. Absent: conjunctival icterus ENT: Present: mucous membranes dry (pharyngeal erythema) - Routine Neck Exam Present: lymphadenopathy (radiation scarring to bilateral neck). Absent: meningismus - Routine Respiratory Exam Present: CTA bilaterally - Routine Cardiovascular Exam Present: RRR, S1, S2 - Routine Abdominal Exam Present: soft, normoactive bowel sounds, non distended, non tender - Routine Extremities Exam Present: no edema, pulses intact - Routine Skin Exam Present: intact, dry, warm - Routine Neurological Exam Present: alert, oriented X3, CN II-XII intact, normal speech - Routine Psychiatric Exam Present: normal affect, normal thought process, cooperative Results - Labs CBC & Chem 7: 06/27/17 10:06 06/27/17 10:06 Assessment and Plan (1) Intractable nausea and vomiting Current visit: Yes Status: Acute DVT Prophylaxis: SCD's Resuscitation Status: Full Code Assessment and Plan: ASSESSMENT Intractable n/v ADIA (creatinine 1.8, baseline 1.2) CKD stage III Seizure in 2014. EEG 01/14/17 was normal. (Dr. Gutiérrez) HTN and orthostatic hypotension (Dr. Dickinson) - baroreceptor dysfunction Hypothyroidism Nontoxic single thyroid nodule Empty sella syndrome CKD (chronic kidney disease) stage 3, GFR 30-59 ml/min (Dr. Melo Lucas) Nasopharyngeal carcinoma (~2009) (Scans every 6 months - Dr. Tavares) Morbid obesity with BMI of 40.0-44.9, adult PE in 2014 JESSICA - uses CPAP and nocturnal O2 Right hand peripheral neuropathy Depression GERD PLAN Observation admission. Monitor on tele. Seizure precautions. IVF for nausea/vomiting and ADIA: NS at 100 mL/hr for 1 more liter. K is low- normal, and will order KDur 20 mEq x1 for later, at which time she will hopefully be able to tolerate oral. Clear liquid diet for now, advance as able. Take home meds now - lamotrigine and clonidine. Outside records reviewed - Clonidine increased to 0.[address] Dickinson. WBC normal; afebrile, though she has increased firmness to right cervical area - will discuss with attending. Repeat labs in am. Sepsis Assessment - Evaluation Sepsis screening result: No Definite Risk Hospital Course Summary Disclaimer: The visit summary below is not to be considered part of the above Progress Note. Hospital Course: 06/27/17 ASSESSMENT Intractable n/v ADIA (creatinine 1.8, baseline 1.2) CKD stage III Seizure in 2014. EEG 01/14/17 was normal. (Dr. Gutiérrez) HTN and orthostatic hypotension (Dr. Dickinson) - baroreceptor dysfunction Hypothyroidism Nontoxic single thyroid nodule Empty sella syndrome CKD (chronic kidney disease) stage 3, GFR 30-59 ml/min (Dr. Melo Lucas) Nasopharyngeal carcinoma (~2009) (Scans every 6 months - Dr. Tavares) Morbid obesity with BMI of 40.0-44.9, adult PE in 2014 JESSICA - uses CPAP and nocturnal O2 Right hand peripheral neuropathy Depression GERD PLAN Observation admission. Monitor on tele. Seizure precautions. IVF for nausea/vomiting and ADIA: NS at 100 mL/hr for 1 more liter. K is low- normal, and will order KDur 20 mEq x1 for later, at which time she will hopefully be able to tolerate oral. Clear liquid diet for now, advance as able. Take home meds now - lamotrigine and clonidine. Outside records reviewed - Clonidine increased to 0.[address] Dickinson. WBC normal; afebrile, though she has increased firmness to right cervical area - will discuss with attending. Repeat labs in am. <Nik Jonas - Last Filed: 06/27/17 18:50> History of Present Illness Date: 06/27/17 [facility] Patient Stated Medical History Hearing Loss Yes Other HEENT Yes: BALANCE ISSUES R/T RADIATION, SINUS CANCER Other Cardiology Yes: FLUCTUATING HYPO/HYPERTENSION Pulmonary Embolism Yes: multiple "small ones" Sleep Apnea Yes Gastroesophageal Reflux Yes Disease Hx Renal Disease Yes Hx Urinary Tract Infection Yes Clotting Problems Yes Other Musculoskeletal Yes: L WRIST FX Sepsis Yes: BLADDER AND KIDNEY Depression Yes Clinic Medical History (Last Updated 06/04/17 @ 09:01 by Pramod Bailey MD) Hypothyroidism (Chronic Medical) Clinically and chemically euthyroid. Nontoxic single thyroid nodule (Chronic Medical) No palpable nodule. Empty sella syndrome (Chronic Medical) CKD (chronic kidney disease) stage 3, GFR 30-59 ml/min (Chronic Medical) Nasopharyngeal carcinoma (Inactive Medical ~2009) Having scans every 6 months. Morbid obesity with BMI of 40.0-44.9, adult (Chronic Medical) Worse. Family History: Family History (Last Updated 06/04/17 @ 08:48 by Roberta Aaron [facility]) Mother Diabetes High blood pressure Sister Thyroid disease Father High blood pressure Maternal Aunt Throat cancer Maternal Grandmother Breast cancer Exam Vital Signs: Temperature 97.0 F 06/27/17 16:07 Pulse Rate 94 06/27/17 17:19 Respiratory Rate 18 06/27/17 16:07 Blood Pressure 163/112 H 06/27/17 17:19 Pulse Oximetry 94 06/27/17 16:07 Height/Weight/BMI: Height 5 ft 1 in Weight 96 kg Body Mass Index 39.9 Results - Labs CBC & Chem 7: 06/27/17 10:06 06/27/17 10:06 Assessment and Plan (1) Intractable nausea and vomiting Current visit: Yes Status: Acute Assessment and Plan: Above pt was seen and examined with Cathi Agree with above findings and plan of care NC/AT CLARICE Mucosas a bit dry Chest - Fair air entry RRR Abd - soft NT/ND Ext no edema. A/P 1) Gastroenteritis, probably viral with CKD with superimposed ADIA. - Creatinine is 1.8 will recheck. 2) H.O Nasopharylgeal carcinoma - s/p irradiation with subsequent baroreceptor damage (Carotid sinus ?) and with brain tissue damage causing seizures - Continue anti-seizure meds - Continue with Clonidine 3) "Empty sella" syndrome. - Pt is on Levothyroxine will check Free T4 - Pt is not on Cortisone (If she has empty sella....) will check AM cortisol - Will check FSH and LH (Should be high) - Time spent with patient greater than 35 minutes Hospital Course Summary Disclaimer: The visit summary below is not to be considered part of the above Progress Note. Addendum entered and electronically signed by Cathi Gottlieb APRN 06/27/17 17: 50: Pt verified Clonidine dosing - since her last visit with Dr. Dickinson her dose was changed from 0.2 clonidine patch to tabs 0.1 mg BID.
[2017-06-27] MEDS ORDERED: SALINE NASAL GEL 14.1gm TOP SCH (14:15)
[2017-06-27] MEDS: ACETAMINOPHEN 500 MG TABLET PO PRN (14:50)
[2017-06-27] MEDS: ONDANSETRON 4 MG/2 ML INJECTION IVP PRN ×2 (14:53→20:53)
[2017-06-27] MEDS: NS 1,000 ML IV SCH ×2 (14:59→23:48)
[2017-06-27] MEDS: LAMOTRIGINE 200 MG TABLET PO SCH ×2 (15:34→20:52)
[2017-06-27] MEDS: Venlaflaxine XR 75 MG CAPSULE (24hr) PO SCH (20:52)
[2017-06-27] MEDS ORDERED: LORATADINE 10 MG TABLET PO SCH (22:15)
[2017-06-27] MEDS ORDERED: SALINE 0.65% NASAL SPRAY 44 ML BOTTLE EA NOSTRIL PRN (22:27)
[2017-06-28 00:45] VITALS: RESP 18
[2017-06-28] MEDS ORDERED: LEVOTHYROXINE 100 MCG TABLET PO SCH (06:30)
[2017-06-28 08:36] VITALS: TEMP 97.2
[2017-06-28 09:02] VITALS: BP 102/57; PULSE 84
[2017-06-28] MEDS: Venlaflaxine XR 75 MG CAPSULE (24hr) PO SCH (09:06)
[2017-06-28] MEDS: LAMOTRIGINE 200 MG TABLET PO SCH (09:06)
[2017-06-28] MEDS: ACETAMINOPHEN 500 MG TABLET PO PRN (09:06)
[2017-06-28] MEDS: NS 1,000 ML IV SCH (10:17)
[2017-06-28 10:28] VITALS: O2SAT 96
--- NOTE | 2017-06-28 12:09 | Discharge Summary ---
<BullCathi D - Last Filed: 06/28/17 12:00> Discharge Information Date of admission: 06/27/17 12:57 Anticipated date of discharge: 06/28/17 Attending Physician: Nik Jonas MD Primary care physician: Evens Arciniega MD - Discharge Diagnosis (1) Intractable nausea and vomiting Status: Resolved - Laboratory Labs: 06/28/17 08:14 06/28/17 08:14 - Radiology Radiology: Acute abdominal series XR: 1. No acute cardiopulmonary abnormality. 2. No evidence of acute obstruction or free air. History of Present Illness HPI: Alicia Weber is a 57 year old who developed N/V suddenly in the morning of . She was seen by Dr. Arciniega who recommended ED eval + admission. Emesis x4 followed by vic santillan. She tried Zofran ODT without much help. Denies diarrhea. Notes diffuse abdominal discomfort/uneasy feeling but no cramping. No hematemesis or coffee-ground appearance. She notes chills alternating with sweating and getting hot. BP this am was 89/56 and she didn't take her home clonidine. She felt weak/dizzy when her BP was low - no syncope but has a history of near-syncope. She denies any recent ill exposures. Hx of blood in the urine - and had UTI a couple weeks ago for which she took abx. She has dry eyes, nose, mouth on a chronic basis, worse recently since she became sick with GI symptoms. Mild headaches, much worse today. Describes it as "So bad I can hear my heart rate". Typically takes Tylenol if she has headaches. Notes sinus congestion when she lies back, with pharyngeal drainage. Tends to bruise easily. Objective Vital signs: Temperature 97.2 F 06/28/17 07:00 Pulse Rate 84 06/28/17 08:58 Respiratory Rate 18 06/28/17 08:58 Blood Pressure 102/57 06/28/17 08:58 Pulse Oximetry 96 06/28/17 10:28 Rhythm: Normal Sinus Rhythm Height/Weight/BMI: Height 1.55 m Weight 98 kg Body Mass Index 39.9 - Constitutional Present: no acute distress, well nourished, well developed - Routine HEENT Exam ENT: Present: mucous membranes moist (minimal pharyngeal erythema - improved from yesterday), oropharynx clear - Routine Respiratory Exam Present: CTA bilaterally - Routine Cardiovascular Exam Present: RRR, S1, S2 - Routine Abdominal Exam Present: soft, normoactive bowel sounds, non distended, non tender - Routine Extremities Exam Present: no edema, pulses intact - Routine Musculoskeletal Exam Musculoskeletal: Present: moving extremities well - Routine Skin Exam Present: intact, dry, warm - Routine Neurological Exam Present: alert, oriented X3, CN II-XII intact, normal speech - Routine Psychiatric Exam Present: normal affect, normal thought process, cooperative Hospital Course This is a general summary of the patient's hospital course. For more details refer to the complete medical record. Hospital course: ASSESSMENT Intractable n/v - RESOLVED ADIA (creatinine 1.8, baseline 1.2) - IMPROVED Hypernatremia (POA) - RESOLVED CKD stage III Seizure in 2014. EEG 01/14/17 was normal. (Dr. Gutiérrez) HTN and orthostatic hypotension (Dr. Dickinson) - baroreceptor dysfunction Hypothyroidism Nontoxic single thyroid nodule Empty sella syndrome CKD (chronic kidney disease) stage 3, GFR 30-59 ml/min (Dr. Melo Lucas) Nasopharyngeal carcinoma (~2009) (Scans every 6 months - Dr. Tavares) Morbid obesity with BMI of 40.0-44.9, adult PE in 2014 JESSICA - uses CPAP and nocturnal O2 Right hand peripheral neuropathy Depression GERD Hospital course Alicia was admitted to observation status and received IV Zofran and IVF. Her diet was advanced from clear liquids to regular, and she was able to tolerate food and drink well by the following day. Further, her Creatinine improved to 1.3. The firmness felt to her right neck improved. She did not have any abdominal cramping or pain. She felt ready to go home on 06/28/17. Pending labs include free T4, AM cortisol and FSH and LH (checked due to dx of empty sella syndrome). Recommend f/u with PCP and/or Dr. Bailey. She has Zofran ODT tabs at home. We also discussed hydration strategies - she will substitute water instead of her typical drink of choice - iced tea. She is also going to try to take better care of herself by reducing stress levels. Discharge Plan - Med Rec/Dispo Referrals/Follow Up: Evens Arciniega MD [Family Provider] - 1 Week Pramod Bailey MD [Physician] - (call for appointment) Prescriptions: Continue CloNIDine [Catapres] 0.1 mg PO BID Lamotrigine [LaMICtal] 200 mg PO BID Venlafaxine Xr [Effexor Xr] 75 mg PO BID Levothyroxine Tab [Synthroid] 100 mcg PO ACB Ondansetron HCl [Zofran] 4 mg PO Q4H PRN PRN Reason: Nausea - Disposition 01 Discharged Home, Self-Care <Nik Jonas - Last Filed: 06/28/17 19:46> Discharge Information Date of admission: 06/27/17 12:57 Attending Physician: Nik Jonas MD Primary care physician: Evens Arciniega MD - Discharge Diagnosis (1) Intractable nausea and vomiting Status: Resolved - Laboratory Labs: 06/28/17 08:14 06/28/17 08:14 Objective Vital signs: Temperature 97.2 F 06/28/17 07:00 Pulse Rate 84 06/28/17 08:58 Respiratory Rate 18 06/28/17 08:58 Blood Pressure 102/57 06/28/17 08:58 Pulse Oximetry 96 06/28/17 10:28 Height/Weight/BMI: Height 5 ft 1 in Weight 98 kg Body Mass Index 39.9 Hospital Course This is a general summary of the patient's hospital course. For more details refer to the complete medical record. Hospital course: Above pt was seen and examined and agree with above plan. Pt was able to tolerate PO well and did not have any more emesis. She is hemodinamically stable Well hydrated Chest clear RRR Abdomen Soft NT/ND Ext no edema. Plan Discharge home now. F/U Labs with PCP - re: empty sella syndrome. Time spent with patient: 25 - 35 minutes
== END 2017-06-28 12:32 | disposition home or self-care (01) ==
LOC: ED 09:17 → MED 09:17
PROVIDERS: ADMIT Internal Medicine; ATTEND Internal Medicine